=== PATIENT | female | born 1965 | race Two or more races ===

== ENCOUNTER 2023-03-06 07:26 | Inpatient (IN) | payer BC, OTHER ==
[~2023-03-06] VITALS: Ht 154.9 cm; Wt 88.2 kg
[2023-03-06] MEDS ORDERED: KETOROLAC TROMETH 30 MG/ML 1ML VIAL IV ONE (08:00)
[2023-03-06] MEDS ORDERED: cefTRIAXone 1GM/50ML D5W 50 ML IV ONE ×2 (08:00)
[2023-03-06] MEDS ORDERED: SODIUM CHLORIDE 0.9% 1,000 ML IV ONE ×4 (08:15→17:00)
[2023-03-06 08:34] LABS: Hematocrit 44.7 % (36.0-46.0); Hemoglobin 14.6 g/dL (12.2-16.2); Mean Corpuscular Hemoglobin 29.4 pg (28.0-32.0); Mean Corpuscular Hgb Conc. 32.6 g/dL (32.0-36.0); Mean Corpuscular Volume 90.1 fL (80.0-100.0); Red Blood Cells 4.96 10^6/uL (4.0-5.20); Red Cell Distribution Width 14.7 % (11.8-14.3); White Blood Cell 25.2 10^3/uL (4.4-10.8)
[2023-03-06 08:56] LABS: Basophils % (manual) 0 (0.0-2.0); Blast Cells 0; Eosinophils % (manual) 0 (0-7); Metamyelocytes % 0; Promyelocytes % 0; Reactive Lymphocytes 0
[2023-03-06 09:10] LABS: Albumin 2.9 g/dL (3.4-5.0); Calcium 9.4 mg/dL (8.5-10.1); Potassium 4.2 mmol/L (3.5-5.1)
[2023-03-06 09:15] LABS: BUN/Creatinine Ratio 7.9 (10.0-20.0); Bilirubin, Total 0.9 mg/dL (0.2-1.0); Total Protein 6.8 g/dL (6.4-8.2)
[2023-03-06 09:18] LABS: Lactic Acid w/Reflex 2.9 mmol/L (0.4-2.0)
[2023-03-06 09:39] LABS: Band Neutrophils % (manual) 3; Lymphocytes % (manual) 4 (10.0-50.0); Monocytes % (manual) 6 (0-12); Myelocytes % 2
[2023-03-06 11:46] LABS: Urine Bacteria FEW /hpf (None Seen); Urine Blood Negative /uL (Negative); Urine Specific Gravity 1.006 (1.001-1.035); Urine WBC 1 /hpf (0 - 5)
[2023-03-06] MEDS ORDERED: ONDANSETRON HCL 4 MG/2 ML VIAL IV ONE (15:30)
[2023-03-06] MEDS ORDERED: MORPHINE SULFATE INJ 2 MG/ml SYRG IV ONE (15:30)
[2023-03-06] MEDS ORDERED: DOCUSATE SOD 100 MG CAP PO PRN (17:00)
[2023-03-06] MEDS ORDERED: VANCOMYCIN PER PHARMACY 0 MG IV SCH (17:00)
[2023-03-06] MEDS ORDERED: DEXTROSE (50%) 50ML SYRG IV PRN (17:00)
[2023-03-06] MEDS ORDERED: ONDANSETRON HCL 4 MG/2 ML VIAL IV PRN (17:00)
[2023-03-06] MEDS ORDERED: VANCOMYCIN 1GM/250ML 250 ML IV ONE (17:00)
[2023-03-06] MEDS: ACCU-CHEK COMFORT CURVE STRIP VI SCH ×2 (17:53→22:02)
[2023-03-06] MEDS: InsuLIN REG 1unit/0.01ml Soln (100units/ml) SC SCH ×2 (18:12→22:07)
[2023-03-06] MEDS ORDERED: CEPH500C PO (21:16)
[2023-03-06 22:00] VITALS: BP 105/69
[2023-03-06] MEDS: CEFEPIME 2GM/50ML NS 50 ML IV SCH (22:02)
[2023-03-06] MEDS: SODIUM CHLORIDE 0.9% 1,000 ML IV SCH (22:03)
[2023-03-06] MEDS: MORPHINE SULFATE INJ 2 MG/ml SYRG IV PRN (23:46)
[2023-03-07] MEDS: SODIUM CHLORIDE 0.9% 1,000 ML IV SCH ×3 (01:20→17:26)
[2023-03-07 05:00] VITALS: BP 152/83
[2023-03-07] MEDS: CEFEPIME 2GM/50ML NS 50 ML IV SCH ×3 (05:06→21:05)
[2023-03-07] MEDS: MORPHINE SULFATE INJ 2 MG/ml SYRG IV PRN ×3 (05:06→21:06)
[2023-03-07 06:01] LABS: Basophils # (auto) 0 10 ^3/uL (0-0.2); Basophils % (auto) 0.2 % (0.0-2.0); Eosinophils # (auto) 0.2 10 ^3/uL (0-0.8); Eosinophils % (auto) 1.1 % (0.0-7.0); Hematocrit 38.8 % (36.0-46.0); Hemoglobin 12.9 g/dL (12.2-16.2); Mean Corpuscular Hemoglobin 29.6 pg (28.0-32.0); Mean Corpuscular Hgb Conc. 33.2 g/dL (32.0-36.0); Mean Corpuscular Volume 89.3 fL (80.0-100.0); Monocytes % (auto) 5.7 % (0.0-12.0); Neutrophils # (auto) 14.8 10 ^3/uL (1.6-8.6); Red Blood Cells 4.35 10^6/uL (4.0-5.20); Red Cell Distribution Width 14.6 % (11.8-14.3)
[2023-03-07 06:18] LABS: Albumin 2.5 g/dL (3.4-5.0); Calcium 8.5 mg/dL (8.5-10.1); Potassium 4.3 mmol/L (3.5-5.1)
[2023-03-07 06:21] LABS: BUN/Creatinine Ratio 15.3 (10.0-20.0); Bilirubin, Total 0.3 mg/dL (0.2-1.0)
[2023-03-07] MEDS: InsuLIN REG 1unit/0.01ml Soln (100units/ml) SC SCH ×4 (06:28→21:18)
[2023-03-07] MEDS: ACCU-CHEK COMFORT CURVE STRIP VI SCH ×4 (06:43→21:06)
[2023-03-07 09:00] VITALS: BP 137/78
[2023-03-07] MEDS: LISINOPRIL 10 MG TAB PO SCH (10:18)
[2023-03-07] MEDS: NICOTINE 21MG/24 HR TOPICAL PATCH TD SCH (10:19)
[2023-03-07] MEDS ORDERED: VANCOMYCIN 1GM/250ML 250 ML IV SCH (12:00)
[2023-03-07] MEDS ORDERED: ACETAMINOPHEN 325 MG TAB PO PRN (12:30)
[2023-03-07 12:59] LABS: Alcohol, Urine < 3.0 mg/dL (0-10); Amphetamine Screen, Urine NEGATIVE (NEGATIVE); Barbiturate Scree,Urine NEGATIVE (NEGATIVE); Benzodiazephine Screen, Urine NEGATIVE (NEGATIVE); Cannabinoid Screen, Urine NEGATIVE (NEGATIVE); Cocaine Screen, Urine NEGATIVE (NEGATIVE); Opiate Scree,Urine NEGATIVE (NEGATIVE); Phencyclidine Screen, Urine NEGATIVE (NEGATIVE)
[2023-03-07 13:00] VITALS: BP 142/82
[2023-03-07 17:02] VITALS: BP 140/75
[2023-03-07 22:00] VITALS: BP 142/77
[2023-03-08] MEDS: MORPHINE SULFATE INJ 2 MG/ml SYRG IV PRN ×3 (01:58→21:00)
[2023-03-08] MEDS: SODIUM CHLORIDE 0.9% 1,000 ML IV SCH ×3 (02:20→19:00)
[2023-03-08 05:00] VITALS: BP 119/70
[2023-03-08] MEDS: VANCOMYCIN 1GM/250ML 250 ML IV SCH ×2 (05:14→12:51)
[2023-03-08] MEDS: CEFEPIME 2GM/50ML NS 50 ML IV SCH ×3 (06:22→21:01)
[2023-03-08] MEDS: ACCU-CHEK COMFORT CURVE STRIP VI SCH ×4 (06:22→21:01)
[2023-03-08] MEDS: InsuLIN REG 1unit/0.01ml Soln (100units/ml) SC SCH ×4 (06:37→21:06)
[2023-03-08 09:00] VITALS: BP 135/80
[2023-03-08] MEDS: LISINOPRIL 10 MG TAB PO SCH (09:47)
[2023-03-08] MEDS: NICOTINE 21MG/24 HR TOPICAL PATCH TD SCH (10:00)
[2023-03-08 13:00] VITALS: BP 153/68
[2023-03-08 17:00] VITALS: BP 147/75
[2023-03-08 22:00] VITALS: BP 157/85
[2023-03-09] MEDS: SODIUM CHLORIDE 0.9% 1,000 ML IV SCH ×2 (03:20→05:26)
[2023-03-09] MEDS: MORPHINE SULFATE INJ 2 MG/ml SYRG IV PRN ×2 (04:40→08:57)
[2023-03-09 05:00] VITALS: BP 130/88
[2023-03-09] MEDS: CEFEPIME 2GM/50ML NS 50 ML IV SCH ×2 (05:26→14:00)
[2023-03-09] MEDS: InsuLIN REG 1unit/0.01ml Soln (100units/ml) SC SCH ×2 (06:41→11:13)
[2023-03-09] MEDS: ACCU-CHEK COMFORT CURVE STRIP VI SCH ×2 (06:42→11:11)
[2023-03-09] MEDS: LISINOPRIL 10 MG TAB PO SCH (08:49)
[2023-03-09] MEDS: NICOTINE 21MG/24 HR TOPICAL PATCH TD SCH (08:50)
[2023-03-09 09:00] VITALS: BP 177/88
[2023-03-09] MEDS ORDERED: CLIN300C70 PO (10:39)
[2023-03-09] MEDS ORDERED: NIC21P TOP (10:39)
[2023-03-09] MEDS ORDERED: METF-372 PO (10:39)
[2023-03-09] MEDS ORDERED: HYDR-4902 PO (10:39)
[2023-03-09] MEDS ORDERED: LEVO500T91 PO (10:39)
[2023-03-09 13:00] VITALS: BP 124/83
== END 2023-03-09 14:47 | disposition home or self-care (01) | DRG 872 ==
LOC: ER 07:26 → OVERFLOW 16:54 → CENTRAL 20:36
PROVIDERS: ADMIT Nurse Practitioner Family; ATTEND Family Medicine
DX: A41.9 Sepsis, unspecified organism (principal); E87.1 Hypo-osmolality and hyponatremia; L03.311 Cellulitis of abdominal wall; N17.9 Acute kidney failure, unspecified; E44.1 Mild protein-calorie malnutrition; E87.21 Acute metabolic acidosis; L03.313 Cellulitis of chest wall; N61.0 Mastitis without abscess; I10 Essential (primary) hypertension; F32.A Depression, unspecified; F17.210 Nicotine dependence, cigarettes, uncomplicated; G56.00 Carpal tunnel syndrome, unspecified upper limb; E11.9 Type 2 diabetes mellitus without complications; Z68.36 Body mass index [BMI] 36.0-36.9, adult; Z90.49 Acquired absence of other specified parts of digestive tract; Z71.6 Tobacco abuse counseling
CPT/HCPCS: 36415; 73070; 76604; 80053; 80202; 80307; 81001; 82962; 83036; 83605; 85007; 85025; 85027; 87040; 96361; 96365; 96366; 96367; 96375; G0378; J0692; J0696; J1815; J1885; J2405

== ENCOUNTER 2025-08-11 04:24 | Emergency (ER) | payer BC, MEDICAID ==
[~2025-08-11] VITALS: Ht 154.9 cm; Wt 80.3 kg
[~2025-08-11 04:24] MED LIST: CEPH500C PO; CLIN1CAP70 PO; HYDR-4902 PO; LEVO500T91 PO; METF-372 PO; NIC21P TOP
--- NOTE | 2025-08-11 04:50 | ED.PDOC ---
Back pain HPI HPI Comments 60-YEAR-OLD FEMALE PRESENTS TO THE ED PER PT, FELL THURSDAY, TRIPPED AND FELL OVER A PLASTIC PALET, INJURE LEFT RIBS, AEEN AT URGENT CARE YESTERDAY, X RAY DONE. PATIENT DESCRIBES PAIN SHARP SHOOTING PAIN LEFT ANTERIOR LOWER CHEST WALL 10/10 ON PAIN SCALE. DENIES SHORTNESS OF BREATH, DIFFICULTY BREATHING, NECK PAIN, BACK PAIN, LOC. Chief Complaint: Fall Injury Time Seen by MD: 04:34 Primary Care Provider: MAXIME Fowler Notes: Nurses Notes, Medications, Allergies Allergies: Coded Allergies: No Known Drug Allergy (Verified Allergy, Unknown, 03/06/23) Home Meds Active Scripts Hydrocodone-Acetaminophen (Hydrocodone Bitartrate/AC 5-325 mg) 1 Tab Tab, 1 TAB PO TID PRN, #20 TAB Prov:LETICIA HILLIARD MD 03/09/23 Nicotine (Nicoderm 21MG/24HR) 1 Patch Ph, 1 PATCH TOP DAILY, #28 PATCH 1 Refill Prov:LETICIA HILLIARD MD 03/09/23 Metformin Hydrochloride (Metformin Hcl) 1,000 Mg Tab, 1 TAB PO BID, #60 TAB 5 R efills Prov:LETICIA HILLIARD MD 03/09/23 Levofloxacin Hemihydrate (LEVAQUIN 500 MG) 500 Mg Tab, 1 TAB PO DAILY, #10 TAB Prov:LETICIA HILLIARD MD 03/09/23 Clindamycin Hcl (Clindamycin Hcl) 300 Mg Cap, 1 CAP PO TID, #30 CAP Prov:LETICIA HILLIARD MD 03/09/23 Reported Medications Cephalexin Monohydrate (Cephalexin) 500 Mg Cap, 1 CAP PO QID 03/06/23 Mode of Arrival: Ambulatory Past Medical History PAST MEDICAL HISTORY: Denies Surgical History: Cholecystectomy [employer]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 Family History Family History: Reviewed,noncontributory to illness Social History Smoker: Cigarettes Alcohol: Denies ETOH Use Drugs: Denies Drug Use Lives In: Home All Other Systems: Reviewed and Negative (see hpi) Physical Exam General Appearance: No Apparent Distress, Normal HEENT: Pharynx Normal Neck: Full Range of Motion, Non-Tender Respiratory: Lungs Clear, No Accessory Muscle Use, No Respiratory Distress, Normal Breath Sounds Cardiovascular: No Edema, No JVD, No Murmur, No Gallop, Normal Peripheral Pulses, Regular Rate/Rhythm Breast Exam: Deferred Gastrointestinal: No Organomegaly, Non Tender, No Pulsatile Mass, Normal Bowel Sounds, Soft Genitalia: Deferred Pelvic: Deferred Rectal: Deferred Extremities: Normal range of motion Musculoskeletal : Location: Left Extremity Location: Chest (Moderate tenderness on palpation left lower anterior ribcage patient with guarding. No noted crepitus or flail chest no noted external gross visible trauma) Apperance: Normal Neurologic: Alert, No Motor Deficits, Normal Affect, Normal Mood, No Sensory Deficits Cerebellar Function: Normal Reflexes: NOT DONE Skin: Dry, Normal Color, Warm Lymphatic: No Adenopathy Was a procedure done? Was a procedure done?: No Back Pain Differential Dx Differential Diagnosis: Fracture, Musculoskeletal Pain, Strain X-Ray, Labs, Meds, VS Vital Signs Date Time Temp Pulse Resp B/P (MAP) Pulse Ox O2 Delivery O2 Flow Rate FiO2 08/11/25 04:26 97.8 75 20 172/90 97 97.8 Current Medications Medications (Trade) Dose Ordered Sig/Rosa Elena Route Start Time Stop Time Status Last Admin Ketorolac Tromethamine (Toradol Injection) 60 mg ONCE ONCE IM 08/11/25 05:30 08/11/25 05:31 DC 08/11/25 05:25 X-Ray, Labs, Meds, VS Comment IMPRESSION: 1. No rib fracture. 2. No acute cardiopulmonary abnormality. 3. Mild emphysema with sub 6 mm pulmonary nodules. Outpatient follow-up chest CT recommended in 12 months per Fleischner society guidelines. Images Reviewed?: Images reviewed and evaluated by me Time of 1ST Reevaluation: 04:34 Reevaluation 1ST: Unchanged Time of 2ND Reevaluation: 05:51 Reevaluation 2ND: Improved Patient Education/Counseling: Diagnosis, Treatment, Need For Follow Up SEPSIS Sepsis Screen Date sepsis recognized/suspect: Aug 11, 2025 Time Sepsis recognized/suspect: 0432 Recent Procedure: No On Antibiotic Therapy: No Respiratory Rate >20: No Heart Rate >90: No Temp<36 C (96.8 F) or >38.3 C: No SBP <90 or MAP <65 mmHG: No New Acute Mental Status Change: No Is the patient on CPAP, BIPAP,: No Physician Orders Chest Without Contrast (08/11/25 04:35) Vital Signs Date Time Temp Pulse Resp B/P (MAP) Pulse Ox O2 Delivery O2 Flow Rate FiO2 08/11/25 04:26 97.8 75 20 172/90 97 97.8 Medications Medications Dose Ordered Sig/Rosa Elena Route Start Time Stop Time Status Last Admin Dose Admin Ketorolac Tromethamine 60 mg ONCE ONCE IM 08/11/25 05:30 08/11/25 05:31 DC 08/11/25 05:25 Departure 1 Departure Time of Disposition: 05:50 Impression: Primary Impression: Contusion of rib on left side Qualified Codes: S29.8XXA - Other specified injuries of thorax, initial encounter Additional Impression: Lung nodule Disposition: HOME / SELF CARE / HOMELESS Condition: Stable Additional Instructions: 6 mm pulmonary nodules. Outpatient follow-up chest CT recommended in 12 months. Follow up with PCP in 2-3 days as needed e-Prescriptions Indomethacin (Indomethacin) 50 Mg Cap 1 CAP PO TID for 5 Days, #25 CAP Prov: FAHAD BRIZUELA 08/11/25 Discharged With: Self Critical Care Note Critical Care Time?: No Stability Stability form required: FAHAD Mccarty Aug 11, 2025 04:50
[2025-08-11] MEDS: KETOROLAC TROMETH 60MG/2ML VIAL IM ONE (05:25)
[2025-08-11] MEDS: HYDROcodone-ACET 5/325MG TAB PO ONE (05:31)
--- NOTE | 2025-08-11 05:41 | DVH ---
PROCEDURE: CT CHEST WITHOUT CONTRAST Reason for study/Clinical History: LEFT SIDE RIB PAIN S/P FALL Comparison Study: None TECHNIQUE: Multidetector CT of the chest was performed from the lung apices to the upper abdomen without the use of intravenous contract. Axial, coronal and sagittal multiplanar reformats were performed. Radiation Dose Information: CT Dose: CTDI volume is 11.74 mGy. Dose-length product is 471.04 mGy*cm The dose indicators for CT are the volume Computed Tomography (CT) Dose Index (CTDIvol) and the Dose Length Product (DLP), and are measured in units of mGy and mGy-cm, respectively. These indicators are not patient dose, but values generated from the CT scanner acquisition factors. The report includes radiation exposure data for exposures received during this examination. FINDINGS: Lower neck: Unremarkable. Lungs: No focal consolidation. Branching opacities in the lung bases most consistent with scarring /atelectasis. Mild apical emphysema. Scattered sub 6 mm nodules in both lungs. Heart/Vascular Structures: Normal heart size. No pericardial effusion. Lymph Nodes: No adenopathy Pleura: No effusion or pneumothorax. Musculoskeletal: No acute osseous abnormality. Soft tissues: Normal. Upper abdomen: No acute abnormality. Cholecystectomy. IMPRESSION: 1. No rib fracture. 2. No acute cardiopulmonary abnormality. 3. Mild emphysema with sub 6 mm pulmonary nodules. Outpatient follow-up chest CT recommended in 12 months per Fleischner society guidelines. Radiation optimization: All CT scans at this facility use at least one of these dose optimization techniques: automated exposure control mA and/or kV adjustment per patient size (includes targeted exams where dose is matched to clinical indication) or iterative reconstruction.
[2025-08-11 05:54] VITALS: BP 146/81; PULSE 66; RESP 16; TEMP 98; O2SAT 97
[2025-08-11] MEDS ORDERED: INDO50CA82 PO (05:54)
== END 2025-08-11 06:00 | disposition home or self-care (01) ==
LOC: ER 04:24
DX: S20.212A Contusion of left front wall of thorax, initial encounter (principal); J43.9 Emphysema, unspecified; F17.210 Nicotine dependence, cigarettes, uncomplicated; Z79.899 Other long term (current) drug therapy; Z90.49 Acquired absence of other specified parts of digestive tract; Z79.84 Long term (current) use of oral hypoglycemic drugs; W01.0XXA Fall on same level from slipping, tripping and stumbling without subsequent striking against object, initial encounter; Y93.89 Activity, other specified; Y92.89 Other specified places as the place of occurrence of the external cause; Y99.8 Other external cause status
CPT/HCPCS: 71250; 96372; 99285; J1885